=== PATIENT | female | born 1940 | race Asian ===

== ENCOUNTER 2018-02-08 15:42 | Inpatient (IN) | payer OTHER, BC ==
[~2018-02-08] VITALS: Ht 170.2 cm; Wt 66.0 kg
[2018-02-08 17:03] LABS: CALCIUM 8.8 mg/dL (8.5-10.1); CHLORIDE SERUM 96 mmol/L (98-107); CREATININE SERUM 0.8 mg/dL (0.6-1.0); GLUCOSE SERUM 153 mg/dL (74-106); POTASSIUM SERUM 3.8 mmol/L (3.5-5.1); SODIUM SERUM 130 mmol/L (136-145)
[2018-02-08 17:11] LABS: BASOPHIL % 0.2 % (0-2); PLATELET COUNT 290 x10^3mcL (130-400); RED CELL DISTRIBUTION WIDTH 13.9 % (11.5-14.5)
[2018-02-08 17:20] LABS: ALBUMIN 3.8 g/dL (3.4-5.0); ALKALINE PHOSPHATASE 116 U/L (46-116); ALT/SGPT 46 U/L (14-59); AST/SGOT 33 U/L (15-37); FREE T4 1.22 ng/dL (0.76-1.46)
[2018-02-08 17:21] LABS: microscopic required? YES; urine erythrocyte TRACE (NEGATIVE)
[2018-02-08 17:21] LABS: TOTAL PROTEIN, SERUM 8.4 g/dL (6.4-8.2)
[2018-02-08] MEDS ORDERED: NOR5 PO (18:07)
[2018-02-08] MEDS ORDERED: ATORVASTATIN CA40 M1 PO (18:08)
[2018-02-08] MEDS ORDERED: ATENOLOL50 MG PO (18:09)
[2018-02-08] MEDS ORDERED: HYDROCHLOROTH12.5 M2 PO (18:09)
[2018-02-08] MEDS ORDERED: LOSARTAN POTAS100 M1 PO (18:10)
[2018-02-08] MEDS ORDERED: ASPIR LOW81 MG (18:10)
[2018-02-08] MEDS ORDERED: PROAIR HFA8.5 GM (18:11)
[2018-02-08 19:07] LABS: MAGNESIUM 2.1 mg/dL (1.8-2.4); PHOSPHOROUS 2.8 mg/dL (2.5-4.9)
[2018-02-08 19:17] LABS: T3 TOTAL 0.84 ng/mL
[2018-02-08 19:19] LABS: FREE T4 1.21 ng/dL (0.76-1.46); FREE THYROXINE INDEX 3.4 ug/dL (1.4-4.5); T4(THYROXINE) 9.4 ug/dL (4.7-13.3)
[2018-02-08 19:36] VITALS: BP 120/86
[2018-02-08 19:45] VITALS: Ht 170.2 cm; Wt 66.0 kg
[2018-02-09 05:50] VITALS: BP 106/69
[2018-02-09 06:34] LABS: BASOPHIL % 0.4 % (0-2); PLATELET COUNT 245 x10^3mcL (130-400); RED CELL DISTRIBUTION WIDTH 13.8 % (11.5-14.5)
[2018-02-09 07:02] LABS: CALCIUM 8.5 mg/dL (8.5-10.1); CARBON DIOXIDE 27.5 mmol/L (21-32); CHLORIDE SERUM 100 mmol/L (98-107); CREATININE SERUM 0.9 mg/dL (0.6-1.0); GLUCOSE SERUM 109 mg/dL (74-106); PHOSPHOROUS 2.9 mg/dL (2.5-4.9); POTASSIUM SERUM 3.8 mmol/L (3.5-5.1); SODIUM SERUM 137 mmol/L (136-145)
[2018-02-09 07:20] LABS: CHOLESTEROL/HDL RATIO 3.5
[2018-02-09 09:49] VITALS: BP 105/59
[2018-02-09 13:39] VITALS: BP 104/62
[2018-02-09 16:25] VITALS: BP 117/78
[2018-02-09 21:04] VITALS: BP 122/61
[2018-02-10 00:06] VITALS: BP 139/76
[2018-02-10 05:19] VITALS: BP 112/66
[2018-02-10 06:11] LABS: BASOPHIL % 0.4 % (0-2); PLATELET COUNT 266 x10^3mcL (130-400); RED CELL DISTRIBUTION WIDTH 13.9 % (11.5-14.5)
[2018-02-10 06:32] LABS: CARBON DIOXIDE 27.6 mmol/L (21-32); CHLORIDE SERUM 97 mmol/L (98-107); CREATININE SERUM 1.1 mg/dL (0.6-1.0); GLUCOSE SERUM 116 mg/dL (74-106); PHOSPHOROUS 3.7 mg/dL (2.5-4.9); POTASSIUM SERUM 3.6 mmol/L (3.5-5.1); SODIUM SERUM 135 mmol/L (136-145)
[2018-02-10 08:00] VITALS: BP 113/69
[2018-02-10] MEDS ORDERED: CLEOCIN HCL300 MG PO (10:10)
[2018-02-10] MEDS ORDERED: LAC PO (12:03)
[2018-02-10 13:19] VITALS: BP 101/68
[2018-02-10 16:52] VITALS: BP 115/72
[2018-02-10] MEDS ORDERED: LEVAQUIN750 MG PO (17:18)
[2018-02-10 17:35] VITALS: BP 115/72
== END 2018-02-10 18:38 | disposition home or self-care (01) | DRG 177 ==
LOC: ED 15:42 → DU 18:03
PROVIDERS: Emergency Medicine; Family Medicine
DX: J69.0 Pneumonitis due to inhalation of food and vomit (principal); I50.43 Acute on chronic combined systolic (congestive) and diastolic (congestive) heart failure; N17.0 Acute kidney failure with tubular necrosis; J96.01 Acute respiratory failure with hypoxia; E87.1 Hypo-osmolality and hyponatremia; J90 Pleural effusion, not elsewhere classified; I11.0 Hypertensive heart disease with heart failure; I48.2 Chronic atrial fibrillation; G47.33 Obstructive sleep apnea (adult) (pediatric); E78.00 Pure hypercholesterolemia, unspecified; R80.9 Proteinuria, unspecified; K76.0 Fatty (change of) liver, not elsewhere classified; G47.00 Insomnia, unspecified; E78.5 Hyperlipidemia, unspecified; E87.8 Other disorders of electrolyte and fluid balance, not elsewhere classified; Z79.82 Long term (current) use of aspirin; Z68.22 Body mass index [BMI] 22.0-22.9, adult
CPT/HCPCS: 36600; 83880; 84439; 87804; 97535-GP; J1940; J1956; J3490; J7030; J7620; Q0092

== ENCOUNTER 2018-08-21 11:23 | Inpatient (IN) | payer OTHER, BC ==
[~2018-08-21] VITALS: Ht 157.5 cm; Wt 65.3 kg
[~2018-08-21 11:23] MED LIST: ASPIR LOW81 MG; ATENOLOL50 MG PO; ATORVASTATIN CA40 M1 PO; CLEOCIN HCL300 MG PO; HYDROCHLOROTH12.5 M2 PO; LAC PO; LEVAQUIN750 MG PO; LOSARTAN POTAS100 M1 PO; NOR5 PO; PROAIR HFA8.5 GM
[2018-08-21] MEDS ORDERED: LIPI20 PO (12:02)
[2018-08-21] MEDS ORDERED: ELIQUIS5 MG PO (12:03)
[2018-08-21] MEDS ORDERED: AMIODARONE HCL200 MG PO (12:04)
[2018-08-21 12:05] LABS: BASOPHIL % 0.6 % (0-2); PLATELET COUNT 308 x10^3mcL (130-400); RED CELL DISTRIBUTION WIDTH 14.4 % (11.5-14.5)
[2018-08-21 12:12] LABS: CALCIUM 8.4 mg/dL (8.5-10.1); CARBON DIOXIDE 26.3 mmol/L (21-32); CHLORIDE SERUM 94 mmol/L (98-107); CREATININE SERUM 0.9 mg/dL (0.6-1.0); GLUCOSE SERUM 170 mg/dL (74-106); SODIUM SERUM 128 mmol/L (136-145)
[2018-08-21 12:16] LABS: ALBUMIN 3.7 g/dL (3.4-5.0); ALKALINE PHOSPHATASE 106 U/L (46-116); ALT/SGPT 48 U/L (14-59); AST/SGOT 29 U/L (15-37); BILIRUBIN TOTAL 0.94 mg/dL (0.20-1.00); TOTAL PROTEIN, SERUM 8.1 g/dL (6.4-8.2)
[2018-08-21 13:00] LABS: UA SPECIFIC GRAVITY >=1.030 (1.005-1.035); microscopic required? YES; urine erythrocyte NEGATIVE (NEGATIVE)
[2018-08-21 15:20] LABS: CHOLESTEROL/HDL RATIO 2.6; MAGNESIUM 2.2 mg/dL (1.8-2.4); PHOSPHOROUS 3.7 mg/dL (2.5-4.9)
[2018-08-21 15:53] VITALS: BP 154/81
[2018-08-21 17:06] LABS: CALCIUM 8.6 mg/dL (8.5-10.1); CARBON DIOXIDE 26.9 mmol/L (21-32); CHLORIDE SERUM 94 mmol/L (98-107); CREATININE SERUM 0.8 mg/dL (0.6-1.0); GLUCOSE SERUM 153 mg/dL (74-106); POTASSIUM SERUM 4.3 mmol/L (3.5-5.1); SODIUM SERUM 129 mmol/L (136-145)
[2018-08-21 18:00] VITALS: BP 150/80
[2018-08-21 18:26] VITALS: BP 148/70
[2018-08-21 20:56] VITALS: BP 136/70
[2018-08-22 05:04] VITALS: BP 133/70
[2018-08-22 07:09] LABS: BASOPHIL % 0.1 % (0-2); PLATELET COUNT 264 x10^3mcL (130-400); RED CELL DISTRIBUTION WIDTH 14.3 % (11.5-14.5)
[2018-08-22 07:21] LABS: CALCIUM 8.5 mg/dL (8.5-10.1); CARBON DIOXIDE 24.5 mmol/L (21-32); CHLORIDE SERUM 95 mmol/L (98-107); CREATININE SERUM 0.9 mg/dL (0.6-1.0); GLUCOSE SERUM 134 mg/dL (74-106); MAGNESIUM 2.2 mg/dL (1.8-2.4); PHOSPHOROUS 3.8 mg/dL (2.5-4.9); POTASSIUM SERUM 3.8 mmol/L (3.5-5.1); SODIUM SERUM 130 mmol/L (136-145)
[2018-08-22 08:41] VITALS: BP 125/62
[2018-08-22 12:17] VITALS: BP 126/58
[2018-08-22 15:26] VITALS: BP 136/55
[2018-08-22 20:59] VITALS: BP 106/57
[2018-08-23 06:13] VITALS: BP 108/59
[2018-08-23 06:45] LABS: PLATELET COUNT 296 x10^3mcL (130-400)
[2018-08-23 07:12] LABS: BASOPHIL % 0 % (0-2)
[2018-08-23 07:15] LABS: CALCIUM 8.3 mg/dL (8.5-10.1); CARBON DIOXIDE 25.7 mmol/L (21-32); CHLORIDE SERUM 96 mmol/L (98-107); GLUCOSE SERUM 187 mg/dL (74-106); MAGNESIUM 2.4 mg/dL (1.8-2.4); PHOSPHOROUS 3.3 mg/dL (2.5-4.9); POTASSIUM SERUM 3.3 mmol/L (3.5-5.1); SODIUM SERUM 133 mmol/L (136-145)
[2018-08-23 09:40] VITALS: BP 122/67
[2018-08-23 12:38] VITALS: BP 129/81
[2018-08-23 17:36] VITALS: BP 124/69
[2018-08-23 20:47] VITALS: BP 115/68
[2018-08-24] VITALS (7 sets, daily range): BP systolic 99–141; BP diastolic 69–87
[2018-08-24 06:28] LABS: CALCIUM 8.3 mg/dL (8.5-10.1); CARBON DIOXIDE 28.1 mmol/L (21-32); CHLORIDE SERUM 100 mmol/L (98-107); GLUCOSE SERUM 197 mg/dL (74-106); POTASSIUM SERUM 4.2 mmol/L (3.5-5.1); SODIUM SERUM 136 mmol/L (136-145)
[2018-08-24 06:32] LABS: PLATELET COUNT 306 x10^3mcL (130-400)
[2018-08-24 07:13] LABS: BASOPHIL % 0 % (0-2); RED CELL DISTRIBUTION WIDTH 15.3 % (11.5-14.5)
[2018-08-25 03:12] VITALS: BP 129/90
[2018-08-25 05:54] LABS: PLATELET COUNT 290 x10^3mcL (130-400)
[2018-08-25 05:55] LABS: RED CELL DISTRIBUTION WIDTH 14.9 % (11.5-14.5)
[2018-08-25 05:56] LABS: BASOPHIL % 0 % (0-2)
[2018-08-25 06:24] LABS: CALCIUM 8.1 mg/dL (8.5-10.1); CARBON DIOXIDE 25.3 mmol/L (21-32); CHLORIDE SERUM 98 mmol/L (98-107); GLUCOSE SERUM 174 mg/dL (74-106); POTASSIUM SERUM 3.7 mmol/L (3.5-5.1); SODIUM SERUM 133 mmol/L (136-145)
[2018-08-25 07:15] VITALS: BP 126/85
[2018-08-25 11:15] VITALS: BP 114/73
[2018-08-25 15:40] VITALS: BP 159/73
[2018-08-25 20:02] VITALS: BP 159/57
[2018-08-25 23:23] VITALS: BP 126/72
[2018-08-26 03:13] VITALS: BP 125/88
[2018-08-26 05:24] LABS: PLATELET COUNT 318 x10^3mcL (130-400)
[2018-08-26 05:34] LABS: CALCIUM 7.8 mg/dL (8.5-10.1); CARBON DIOXIDE 26.7 mmol/L (21-32); CHLORIDE SERUM 98 mmol/L (98-107); CREATININE SERUM 0.9 mg/dL (0.6-1.0); GLUCOSE SERUM 197 mg/dL (74-106); POTASSIUM SERUM 3.7 mmol/L (3.5-5.1); RED CELL DISTRIBUTION WIDTH 15.1 % (11.5-14.5); SODIUM SERUM 132 mmol/L (136-145)
[2018-08-26 05:35] LABS: BASOPHIL % 0 % (0-2)
[2018-08-26 07:30] VITALS: BP 134/67
[2018-08-26 07:56] VITALS: Ht 157.5 cm; Wt 65.3 kg
[2018-08-26 11:30] VITALS: BP 133/86
[2018-08-26 16:05] VITALS: BP 118/77
[2018-08-26 20:44] VITALS: BP 127/78
[2018-08-27 05:18] VITALS: BP 139/82
[2018-08-27 06:48] LABS: PLATELET COUNT 294 x10^3mcL (130-400)
[2018-08-27 06:55] LABS: BASOPHIL % 0 % (0-2); CALCIUM 8.4 mg/dL (8.5-10.1); CARBON DIOXIDE 31.2 mmol/L (21-32); CHLORIDE SERUM 101 mmol/L (98-107); GLUCOSE SERUM 182 mg/dL (74-106); POTASSIUM SERUM 3.6 mmol/L (3.5-5.1); RED CELL DISTRIBUTION WIDTH 15.2 % (11.5-14.5); SODIUM SERUM 139 mmol/L (136-145)
[2018-08-27 10:56] VITALS: BP 124/78
[2018-08-27 14:00] VITALS: BP 113/69
[2018-08-27 19:24] VITALS: BP 133/75
[2018-08-27 21:07] VITALS: BP 123/75
[2018-08-28 05:12] VITALS: BP 120/62
[2018-08-28 06:17] LABS: PLATELET COUNT 267 x10^3mcL (130-400)
[2018-08-28 06:38] LABS: CALCIUM 7.7 mg/dL (8.5-10.1); CARBON DIOXIDE 32.9 mmol/L (21-32); CHLORIDE SERUM 99 mmol/L (98-107); CREATININE SERUM 0.9 mg/dL (0.6-1.0); GLUCOSE SERUM 124 mg/dL (74-106); POTASSIUM SERUM 3.5 mmol/L (3.5-5.1); SODIUM SERUM 131 mmol/L (136-145)
[2018-08-28 07:29] LABS: BASOPHIL % 0 % (0-2); RED CELL DISTRIBUTION WIDTH 14.8 % (11.5-14.5)
[2018-08-28 10:38] VITALS: BP 121/75
[2018-08-28] MEDS ORDERED: LOSARTAN POTASS50 M1 PO (13:00)
[2018-08-28] MEDS ORDERED: PREDNISONE20 MG PO (13:00)
[2018-08-28] MEDS ORDERED: METOPROLOL TART25 M1 PO (13:00)
[2018-08-28] MEDS ORDERED: DIGOXIN0.125 M1 PO (13:00)
[2018-08-28] MEDS ORDERED: METFORMIN HCL500 MG PO (13:00)
[2018-08-28 14:31] VITALS: BP 121/75
[2018-08-28 14:33] VITALS: BP 133/72
== END 2018-08-28 15:30 | disposition home or self-care (01) | DRG 193 ==
LOC: ED 11:23 → MU 14:23 → IC 14:23 → DU 14:23 → IC 08-24 13:37 → DU 08-26 18:28
PROVIDERS: Emergency Medicine; Family Medicine; ADMIT Internal Medicine
DX: J18.9 Pneumonia, unspecified organism (principal); J96.01 Acute respiratory failure with hypoxia; N17.0 Acute kidney failure with tubular necrosis; I50.33 Acute on chronic diastolic (congestive) heart failure; D68.59 Other primary thrombophilia; E87.1 Hypo-osmolality and hyponatremia; J81.1 Chronic pulmonary edema; I48.91 Unspecified atrial fibrillation; I10 Essential (primary) hypertension; E11.65 Type 2 diabetes mellitus with hyperglycemia; E78.5 Hyperlipidemia, unspecified; E87.70 Fluid overload, unspecified; G47.33 Obstructive sleep apnea (adult) (pediatric); Z79.01 Long term (current) use of anticoagulants
CPT/HCPCS: 36600; 82962; 83880; C9113; J0282; J1160; J1940; J1956; J2920; J2930; J3490; J7030; J7040; J7613; J7620; J7626; J7644; Q0092

== ENCOUNTER 2018-12-25 08:46 | Inpatient (IN) | payer OTHER, BC ==
[~2018-12-25] VITALS: Ht 165.1 cm; Wt 62.1 kg
[~2018-12-25 08:46] MED LIST changes: +AMIODARONE HCL200 MG PO; +DIGOXIN0.125 M1 PO; +ELIQUIS5 MG PO; +LIPI20 PO; +LOSARTAN POTASS50 M1 PO; +METFORMIN HCL500 MG PO; +METOPROLOL TART25 M1 PO; +PREDNISONE20 MG PO
[2018-12-25 08:50] VITALS: Ht 165.1 cm; Wt 62.1 kg
--- NOTE | 2018-12-25 08:55 | NUR ---
PT BIBA FOR SOB THAT OCCURED AT PATIENT'S HOUSE EARLIER TODAY. PER MEDIC, THERE WAS A HOME HEALTH NURSE PRESENT AND NOTICED PATIENT WAS SOB. PATIENT WAS PLACED ON CPAP BY MEDICS. RT ON SCENE TO ESTABLISH BIPAP. WHEEZING AUSCULTATED BILATERALLY. PATIENT AAOX4, BREATHING IS LABORED, BILATERAL CHEST RISE. DR. YU PERFORMED MSE.
--- NOTE | 2018-12-25 09:00 | NUR ---
PLACED ON BIPAP 12/6 RR12 FIO2:50%
[2018-12-25 09:38] LABS: ALKALINE PHOSPHATASE 117 U/L (46-116); ALT/SGPT 95 U/L (14-59); AST/SGOT 50 U/L (15-37); BILIRUBIN TOTAL 1.91 mg/dL (0.20-1.00); C REACTIVE PROTEIN 1.2 mg/dL (<=0.9); CALCIUM 9.2 mg/dL (8.5-10.1); CARBON DIOXIDE 26.1 mmol/L (21-32); CHLORIDE SERUM 89 mmol/L (98-107); CK-MB 2.8 ng/mL (0-3.6); CREATININE SERUM 0.9 mg/dL (0.6-1.0); FREE T4 1.71 ng/dL (0.76-1.46); FREE THYROXINE INDEX 4.2 ug/dL (1.4-4.5); GLUCOSE SERUM 213 mg/dL (74-106); POTASSIUM SERUM 4.4 mmol/L (3.5-5.1); T4(THYROXINE) 11.1 ug/dL (4.7-13.3)
[2018-12-25 09:40] LABS: T3 TOTAL 0.94 ng/mL
[2018-12-25 09:41] LABS: SODIUM SERUM 123 mmol/L (136-145)
[2018-12-25 09:45] LABS: BASOPHIL % 0.2 % (0-2); PLATELET COUNT 237 x10^3mcL (130-400)
[2018-12-25] MEDS ORDERED: CARDIZEM CD360 MG PO (09:48)
[2018-12-25] MEDS ORDERED: ELIQUIS2.5 MG PO (09:48)
[2018-12-25] MEDS ORDERED: GLIPIZIDE ER5 M1 (09:49)
[2018-12-25] MEDS ORDERED: ALDACTONE25 MG (09:49)
[2018-12-25] MEDS ORDERED: LASIX40 MG PO (09:49)
[2018-12-25 09:50] LABS: RED CELL DISTRIBUTION WIDTH 15.8 % (11.5-14.5)
--- NOTE | 2018-12-25 10:10 | NUR ---
PT RESTING AT BEDSIDE IN NAD. RESIDENT AT BEDSIDE
[2018-12-25 10:35] LABS: UA SPECIFIC GRAVITY >=1.030 (1.005-1.035); microscopic required? YES; urine erythrocyte TRACE (NEGATIVE)
--- NOTE | 2018-12-25 11:23 | NUR ---
ATTEMPTED TO CALL REPORT. PER PL SQL PROGRAMMER, CALL BACK IN 5 MINUTES
[2018-12-25 11:30] LABS: ERYTHROCYTE SED RATE 13 mm/hr (0-30)
--- NOTE | 2018-12-25 11:35 | NUR ---
REPORT OFF TO ANDI WHITE
[2018-12-25 11:47] LABS: MAGNESIUM 1.9 mg/dL (1.8-2.4); PHOSPHOROUS 3.6 mg/dL (2.5-4.9)
--- NOTE | 2018-12-25 11:49 | NUR ---
RECEIVED PATIENT FROM ER AT THIS TIME. PATIENT TRANSFERRED FROM ER [facility] TO [facility] BED. PATIENT ON BIPAP AT THIS TIME. LABORED BREATHING. AUDIBLE WHEEZES NOTED. PATIENT A/O X4 AND ABLE TO MAKE NEEDS KNOWN. INCREASED WORK OF BREATHING. PATIENT DENIES CHEST PAIN AT THIS TIME. TELE [address] READING AFIB. PULSES PALPABLE WITH NO EDEMA NOTED. BOWEL SOUNDS ACTIVE X4 AND DENIES ABD PAIN AT THIS TIME. VOIDS FREELY WITH NO C/O BURNING/DISCOMFORT. IV TO LEFT HAND PATENT AND INTACT. ALL QUESTIONS AND CONCERNS ADDRESSED. PERSONAL BELONGINGS LIST DONE. ALL NEEDS ATTENDED TO. WILL CONTINUE TO MONITOR
--- NOTE | 2018-12-25 12:07 | NUR ---
PATIENT BLOOD SUGAR 187 AT THIS TIME. 3 UNITS OF REGULAR INSULIN REQUIRED (SEE EMAR). ALL NEEDS ATTENDED TO. WILL CONTINUE TO MONITOR
[2018-12-25 12:43] VITALS: BP 137/99
--- NOTE | 2018-12-25 12:43 | NUR ---
TAKEN OFF BIPAP TO EAT. PLACED ON 6L OXYMIZER SPO2: 98%
[2018-12-25 12:46] VITALS: BP 137/99
--- NOTE | 2018-12-25 13:00 | NUR ---
SPOKE TO RESIDENT WATCHER LOOKOUT TOWER DR MEDINA REGARING PATIENT HR INCREASING TO 150'S ON TELE. PATIENT DENIES CHEST PAIN. PER DR MEDINA SHE WILL RELAY MESSAGE TO DR REYES. WILL PROCEED ORDERED. WILL CONTINUE TO MONITOR
--- NOTE | 2018-12-25 15:00 | NUR ---
PLACED BACK ON BIPAP. 07/31 14 50%
--- NOTE | 2018-12-25 16:16 | NUR ---
FORTUNE CATHETER INSERTED AT THIS TIME WITH STUDENT AND STUDENT PROFESSOR. PATIENT TOLERATED WELL. SECURED IN PLACE. FORTUNE DRAINING TO GRAVITY YELLOW URINE. WILL CONTINUE TO MONITOR
--- NOTE | 2018-12-25 16:23 | NUR ---
PATIENT GIVEN DIGOXIN IVP AT THIS TIME. APICAL PULSE 84. TELE MONITOR AWARE AND TO PRINT STRIPS BEFORE AND AFTER ADMINISTRATION. NO ADVERSE EFFECTS NOTED. ALL NEEDS ATTENDED TO. WILL CONTINUE TO MONITOR
[2018-12-25 17:10] VITALS: BP 125/74
--- NOTE | 2018-12-25 18:08 | NUR ---
DR MEDINA AND DR MUNOZ AWARE OF PATIENT HEART RATE RANGING IN THE 40-60. DR'S AWARE DR CONNELL ORDERED DIGOXIN FOR PATIENT. DR'Humberto AWARE PATIENT IS ASYMPTOMATIC AND DENIES CHEST PAIN AT THIS TIME. PER DR'S, MONITOR PATIENT HEART RATE. NO CHANGE IN ORDERS. WILL CONTINUE TO MONITOR
--- NOTE | 2018-12-25 18:39 | NUR ---
PATIENT RESTING COMFORTABLY IN BED AT THIS TIME. NO APPARENT DISTRESS OR DISCOMFORT NOTED. IV TO LEFT HAND PATENT AND INTACT. FORTUNE CATHETER IN PLACE DRAINING TO GRAVITY YELLOW URINE. CONTINUOUS BIPAP FIO2 40. ALL QUESTIONS AND CONCERNS ADDRESSED. SAFETY PRECAUTIONS MAINTAINED. FAMILY AT BEDSIDE. ALL NEEDS ATTENDED TO. WILL ENDORSE ALL CARE TO NANOFABRICATION SPECIALIST NURSE
--- NOTE | 2018-12-25 19:30 | NUR ---
RECIEVED PATIENT AT START OF SHIFT ALERT AND ORIENTED. PATIENT IS ON BIPAP 40% FI02, AND STATES SHE FEELS COMFORTABLE, NO SOB. LUNGS SOUND CLEAR THROUGHOUT. DENIES PAIN. PATIENT IS ON TELE NUMBER 18, [place] AT 44. FORTUNE CATHETER IN PLACE DRAINING CLEAR YELLOW URINE. IV TO LH IS INFUSING WITHOUT ERYTHEMA OR INFILTRATION. BED LOCKED AND IN LOWEST POSIITON. CALL LIGHT AND BEDSIDE TABLE WITHIN REACH. WILL CONTINUE TO MONITOR.
[2018-12-25 21:17] VITALS: BP 101/53
--- NOTE | 2018-12-25 23:15 | NUR ---
PATIENT WAS SWITCHED FROM BIPAP TO OXYMIZER 45% FI02 SO SHE COULD EAT A SANDWHICH. PATIENT IS NO LONGER NPO BECAUSE ULTRASOUND WAS COMPLETED. PATIENT SATTING 93% ON OXYMIZER. APPEARS COMFORTABLE. WILL CONTINUE TO MONITOR.
--- NOTE | 2018-12-26 00:25 | NUR ---
PATIENT PUT BACK ON BIPAP DUE TO O2 SAT OF 85 ON OXYMIZER 10L. NEW O2 SAT IS 96% ON BIPAP. WILL CONTINUE TO MONITOR.
[2018-12-26 06:10] LABS: PLATELET COUNT 170 x10^3mcL (130-400)
--- NOTE | 2018-12-26 06:24 | NUR ---
PATIENT IS AWAKE, FORTUNE CARE PROVIDED. FORTUNE DRAINED 620 MLS OF BLOODY URINE. WILL NOTOFOnofre MD OF BLOODY URINE. IV INFUSING WITHOUT IRRITATION. BIPAP STILL IN PLACE. PATIENT STATES SHE FEELS COMFORTABLE. CALL LIGHT WITHIN REACH. WILL ENDORSE CARE TO MORNING NURSE.
[2018-12-26 06:30] LABS: CALCIUM 7.9 mg/dL (8.5-10.1); CARBON DIOXIDE 25.1 mmol/L (21-32); CHLORIDE SERUM 97 mmol/L (98-107); CREATININE SERUM 1.1 mg/dL (0.6-1.0); GLUCOSE SERUM 194 mg/dL (74-106); MAGNESIUM 2.1 mg/dL (1.8-2.4); PHOSPHOROUS 2.4 mg/dL (2.5-4.9); POTASSIUM SERUM 4.2 mmol/L (3.5-5.1); SODIUM SERUM 130 mmol/L (136-145)
[2018-12-26 06:37] VITALS: BP 127/65
[2018-12-26 06:56] LABS: BASOPHIL % 0 % (0-2)
--- NOTE | 2018-12-26 07:57 | NUR ---
RECEIVED AWAKE, ALERT AND ORIENTED. ON BIPAP , NO ACUTE RESP. DISTRESS NOTED. NO C/O PAIN OR DISCOMFORT. VS WNL. IVF INFUSING WELL AND SITE CLEAR. CALLLIGHT WITHIN REACH. WILL CONTINUE WITH PLAN OF CARE.
[2018-12-26 08:24] VITALS: BP 135/80
[2018-12-26 12:17] VITALS: BP 125/66
--- NOTE | 2018-12-26 15:25 | NUR ---
RESTING IN BED, NO ACUTE DISTRESS. DENIES ANY DISCOMFORT.
[2018-12-26 17:02] VITALS: BP 124/58
--- NOTE | 2018-12-26 18:45 | NUR ---
REMAINS IN NO DISTRESS. AWAKE AND ALERT. NO CHANGES IN VS. NO C/O PAIN OR DISCOMFORT AT THIS TIME. IVF INFUSING WELL AND SITE CLEAR. FAMILY AT BEDSIDE. WILL BE ENDORSED TO INCOMING SHIFT.
--- NOTE | 2018-12-26 19:15 | NUR ---
CARE ASSUMED FROM OUTGOING RN. PT RESTING COMFORTABLY IN BED. NO ACUTE DISTRESS NOTED. ON OXYMIZER, TOLERATING WELL. NO SOB NOTED. ON TELE #18 READING AFIB 65. IV PATENT AND INTACT RUNNING FLUIDS PER EMAR. FORTUNE PATENT WITH DARK YELLOW OUTPUT WITH MINUTE BLOOD NOTED. BED IN LOWEST POSITION. SIDE RAILS UP X2. CALL LIGHT WITHIN REACH WILL CONTINUE TO MONITOR.
[2018-12-26 20:28] VITALS: BP 154/58
--- NOTE | 2018-12-27 00:20 | NUR ---
PT RESTING COMFORTABLY IN BED. NO ACUTE DISTRESS NOTED. EVEN AND UNLABORED BREATHING ON BIPAP. ON TELE# 18 READING AFIB 72. IV INTACT AND PATENT RUNNING FLUIDS PER EMAR. SOLU-MEDROL GIVEN IVP. PT TOLERATED WELL. BED IN LOWEST POSITION. SIDE RAILS UP X2. CALL LIGHT WITHIN REACH. WILL CONTINUE TO MONITOR.
[2018-12-27 05:28] VITALS: BP 135/72
[2018-12-27 06:30] LABS: PLATELET COUNT 181 x10^3mcL (130-400)
--- NOTE | 2018-12-27 06:37 | NUR ---
PT SLEPT COMFORTABLY AND PERIODICALLY THROUGHOUT THE NIGHT. NO ACUTE DISTRESS NOTED. PT TOLERATING BIPAP WELL. ON TELE #18 READING AFIB 90. ALL NEEDS TENDED TO AND MET. PT TOLERATED PO MEDS, IV SOLUMEDROL, AND ZOSYN IVPB WELL. FASTING BLOOD SUGAR CHECKED, 236 COVERED WITH 6 UNITS OF INSULIN, 148 WITH NO INSULIN COVERAGE NEEDED. IV PATENT AND INTACT RUNNING FLUIDS PER EMAR. FORTUNE PATENT WITH 700ML OUTPUT OF YELLOW, BLOODY URINE. BED IN LOWEST POSITION. SIDE RAILS UP X2. CALL LIGHT WITHIN REACH. WILL ENDORSE TO ONCOMING SHIFT.
[2018-12-27 07:06] LABS: RED CELL DISTRIBUTION WIDTH 16.4 % (11.5-14.5)
[2018-12-27 07:07] LABS: BASOPHIL % 0 % (0-2); CALCIUM 7.8 mg/dL (8.5-10.1); CARBON DIOXIDE 26.4 mmol/L (21-32); CHLORIDE SERUM 101 mmol/L (98-107); GLUCOSE SERUM 167 mg/dL (74-106); MAGNESIUM 2.4 mg/dL (1.8-2.4); PHOSPHOROUS 2.7 mg/dL (2.5-4.9); POTASSIUM SERUM 3.7 mmol/L (3.5-5.1); SODIUM SERUM 136 mmol/L (136-145)
[2018-12-27 07:23] VITALS: BP 141/73
--- NOTE | 2018-12-27 07:32 | NUR ---
RECEIVED THIS AM ON BIPAP AND TOLERATING WELL. IN NO ACUTE RESP. DISTRESS. PT AWAKE AND ALERT. VS WNL. AFIB ON THE MONITOR. NO C/O PAIN OR DISCOMFORT AT THIS TIME. FORTUNE VATH IN PLACE DRAINING DARK NILDA URINE TO GRAVITY. IVF INFUSING WELL AND SITE CLEAR. CALL LIGHT WITHIN REACH. WILL CONTINUE WITH PLAN OF CARE.
[2018-12-27 12:46] VITALS: BP 127/58
--- NOTE | 2018-12-27 15:21 | NUR ---
RESTING IN NO DISTRESS, DENIES DISCOMFORT.
[2018-12-27 16:48] VITALS: BP 146/71
--- NOTE | 2018-12-27 18:56 | NUR ---
REMAINS IN NO ACUTE DISTRESS, ON OXYMIZER 15L SATS 96%. MILD SOB WITH ACTIVITIES NOTED. NO C/O PAIN AT THIS TIME. INF INFUSING WELL AND SITE CLEAR. FAMILY AT BEDSIDE. WILL BE ENDORSED TO INCOMING SHIFT.
--- NOTE | 2018-12-27 19:10 | NUR ---
CARE ASSUMED FROM OUTGOING RN. PT RESTING COMFORTABLY IN BED. NO ACUTE DISTRESS NOTED. EVEN AND UNLABORED RESPIRATIONS NOTED ON OXYMIZER 5L. ON TELE #18 READING AFIB 79. IV INTACT AND PATENT RUNNING FLUIDS PER EMAR. FORTUNE INTACT AND PATENT WITH YELLOW OUTPUT. DENIES ANY PAIN AT THIS TIME. BED IN LOWEST POSITION. SIDE RAILS UP X2. CALL LIGHT WITHIN REACH. WILL CONTINUE TO MONITOR.
[2018-12-27 19:50] VITALS: BP 133/67
--- NOTE | 2018-12-28 00:14 | NUR ---
PT RESTING COMFORTABLY IN BED. NO ACUTE DISTRESS NOTED. TOLERATING BIPAP WELL. DENIES ANY PAIN AT THIS TIME. IV PATENT AND INTACT RUNNING FLUIDS PER EMAR. IVP SOLU-MEDROL GIVEN. ON TELE #18 READING AFIB 79. FORTUNE INTACT AND PATENT WITH DARK YELLOW OUTPUT. BED IN LOWEST POSITION. SIDE RAILS UP X2. CALL LIGHT WITHIN REACH. WILL CONTINUE TO MONITOR.
[2018-12-28 05:34] VITALS: BP 147/63
[2018-12-28 06:07] LABS: PLATELET COUNT 182 x10^3mcL (130-400)
[2018-12-28 07:18] LABS: CALCIUM 7.5 mg/dL (8.5-10.1); CARBON DIOXIDE 26.8 mmol/L (21-32); CHLORIDE SERUM 103 mmol/L (98-107); GLUCOSE SERUM 158 mg/dL (74-106); MAGNESIUM 2.3 mg/dL (1.8-2.4); POTASSIUM SERUM 3.2 mmol/L (3.5-5.1); SODIUM SERUM 140 mmol/L (136-145)
--- NOTE | 2018-12-28 07:31 | NUR ---
RECEIVED IN NO ACUTE DISTRESS. ON BIPAP AND TOLERATING WELL. ALERT AND ORIENTED. DENIES PAIN OR DISCOMFORT AT THIS TIME. VS WNL. IVF INFUSING WELL. CALL LIGHT WITHIN REACH. WILL CONTINUE WITH PLAN OF CARE.
[2018-12-28 07:35] LABS: BASOPHIL % 0 % (0-2); RED CELL DISTRIBUTION WIDTH 16.4 % (11.5-14.5)
[2018-12-28 09:09] VITALS: BP 144/73
--- NOTE | 2018-12-28 10:58 | NUR ---
PT ON OXYMIZER 3L, RANDA. FAIRLY.MILD SOB NOTED WITH ACTIVITIES BUT NO ACUTE DISTRESS. WILL CONTINUE TO MONITOR.
[2018-12-28 13:00] VITALS: BP 143/78
--- NOTE | 2018-12-28 15:18 | NUR ---
FAMILY AT BEDSIDE. NO ACUTE DOSTRESS NOTED. NO C/O PAIN OR DISCOMFORT. VSS
[2018-12-28 17:15] VITALS: BP 145/76
--- NOTE | 2018-12-28 18:12 | NUR ---
PT REMAINS IN NO DISTRESS, AWAKE AND ALERT. NO C/O PAIN OR DISCOMFORT AT THIS TIME. IVF INFUSING WELL AND SITE CLEAR. CALL LIGHT WITHIN REACH.
--- NOTE | 2018-12-28 19:57 | NUR ---
PT CURRENTLY RESTING IN BED, NO ACUTE DISTRESS. A/O X4. BLURRY VISION BILATERALLY. TELE #18 SHOWING AFIB, DENIES CHEST PAIN. PULSES PALPABLE IN ALL EXTREMITIES, NO EDEMA NOTED. LUNG SOUNDS WHEEZING BILATERALLY, DENIES SOB. O2 VIA OXYMIZER AT 3L. BOWEL SOUNDS ACTIVE, LAST BM 12/28/18. FORTUNE CATHETER IN PLACE, YELLOW URINE NOTED. GENERALIZED WEAKNESS. SKIN INTACT. IV PATENT AND INTACT. BED IN LOWEST POSITION, SIDE RAILS UP X2, CALL LIGHT WITHIN REACH. WILL CONTINUE TO MONITOR.
[2018-12-28 20:12] VITALS: BP 138/66
--- NOTE | 2018-12-29 03:45 | NUR ---
PT CURRENTLY RESTING IN BED WITH BIPAP ON, NO ACUTE DISTRESS. WILL CONTINUE TO MONITOR.
[2018-12-29 04:10] VITALS: BP 144/82
--- NOTE | 2018-12-29 06:15 | NUR ---
PT SLEPT PERIODICALLY THROUGHOUT NIGHT, NO ACUTE DISTRESS. ALL NEEDS MET AND ATTENDED TO. NO SIGNIFICANT CHANGES. IV PATENT AND INTACT. BED IN LOWEST POSITION, SIDE RAILS UP X2, CALL LIGHT WITHIN REACH. WILL ENDORSE CARE TO ONCOMING NURSE.
[2018-12-29 06:29] LABS: PLATELET COUNT 184 x10^3mcL (130-400)
[2018-12-29 06:39] LABS: CALCIUM 7.4 mg/dL (8.5-10.1); CARBON DIOXIDE 29.8 mmol/L (21-32); CHLORIDE SERUM 102 mmol/L (98-107); CREATININE SERUM 0.9 mg/dL (0.6-1.0); GLUCOSE SERUM 175 mg/dL (74-106); MAGNESIUM 2.4 mg/dL (1.8-2.4); PHOSPHOROUS 2.9 mg/dL (2.5-4.9); SODIUM SERUM 140 mmol/L (136-145)
[2018-12-29 06:59] LABS: BASOPHIL % 0 % (0-2); RED CELL DISTRIBUTION WIDTH 16.6 % (11.5-14.5)
--- NOTE | 2018-12-29 08:00 | NUR ---
AT 0710 - RECEIVED PATIENT FROM NIGHT NURSE. PATIENT SLEEPING. ON BIPAP AT PRESENT. MONITOR SHOWING A-FIB; RATE 90'S. AT 0740 - AWAKE, ALERT AND ORIENTED. TAKEN OFF BIPAP AND PLACED ON OXYMIZER AT 3L/MIN. SAT UP IN BED FOR BREAKFAST.
[2018-12-29 08:51] VITALS: BP 154/97
--- NOTE | 2018-12-29 09:34 | NUR ---
AT 0820 - K+ 3.[address] VILLARREAL. WILL HOLD LASIX UNTIL K REPLEATED. AT 0826 - RECEIVED ORDER FOR K-RIDER. AT 0915 - PATIENT IS NOW OFF OXYMIZER. HAS BEEN PLACED ON NC AT 2L BY RT.
--- NOTE | 2018-12-29 11:14 | NUR ---
AT 1030 - COMMENCED K-RIDER PER EMAR. ALSO GIVEN PO LASIX SCHEDULED. AT 1100 - PATIENT SITTIBNG IN CHAIR. BLADDER TRAINING COMMENCED THERE IS ORDER TO REMOVE FORTUNE CATHETER.
[2018-12-29 12:07] VITALS: BP 137/69
[2018-12-29 16:46] VITALS: BP 126/52
--- NOTE | 2018-12-29 18:41 | NUR ---
AT 1300 - AFTER EATING LUNCH, PATIENT RETURNED TO BED. BLADDER TRAINING IN PROGRESS. K-RIDER IN PROGRESS. AT 1630 - PATIENT TOLERATING BLADDER TRAINING WITH ALTERNATING 2 HOURS OF CLAMPED CATHETER AND 30 MINUTES RELEASE. AT 1800 - VSS. AFEBRILE. RESPIRATIONS REGULAR. REMAINS ON O2 VIA NC AT 2L. ENCOURAGED USE OF INSENTIVE SPIROMETER. EATING WELL. NO C/O PAIN. MONITOR SHOWING A-FIB; RATE 70. WILL ENDORSE CARE TO NIGHT NURSE.
--- NOTE | 2018-12-29 19:20 | NUR ---
REPORT RECIEVED FROM DAY SHIFT RN. PATIENT WAS SEEN AND IS RESTING COMFORTABLY IN BED. NO DISTRESS NOTED. NO C/O PAIN. BREATHING EVEN ON 2L NC. NO SOB OR RESP DISTRESS NOTED. IV TO THE LEFT HAND INFSUING NS WELL. PATENT AND INTACT. NO REDNESS OR SWELLING NOTED. FORTUNE CATH IN PLACE. DRAINGING YELLOW URINE BY GRAVITY. ABLE TO MAKE NEEDS KNOWN. COMFORT AND SAFETY MEASURES MAINTAINED. BED IN THE LOWEST POSITION. SIDE RAILS UP X2. CALL LIGHT IS WITHIN REACH. INSTRUCTED TO CALL FOR ASSISTANCE. WILL CONTINUE TO MONITOR.
[2018-12-29 20:51] VITALS: BP 154/80
--- NOTE | 2018-12-29 22:10 | NUR ---
AT 1999 FORTUNE WAS CLAMPPED FOR BLADDER TRAINING. UNCLAMMPED, 200ML OUT. PATIENT TOLERATED WELL. DENIED BLADDER PAIN. CALL LIGHT IS WITHIN REACH. PATIENT ON BIPAP FOR SLEEP. WILL CONTINUE TO MONITOR.
--- NOTE | 2018-12-30 00:17 | NUR ---
PATIENT IS RESTING WITH EYES CLOSED IN BED COMFORTABLY. ON BIPAP. IV TO THE LEFT HAND INFUSING WELL. PATENT AND INTACT. NO REDNESS OR SWELLING NOTED. NO DISTRESS NOTED. NO S/S OF PAIN. COMFORT AND SAFETY MEASURES MAINTAINED. CALL LIGHT IS WITHTIN REACH. WILL CONTINUE TO MONITOR.
[2018-12-30 05:36] VITALS: BP 154/88
--- NOTE | 2018-12-30 06:37 | NUR ---
PATIENT SLEPT IN LONG INTERVALS THROUGHOUT THE NIGHT. ON BIPAP THROGHOUT THE NIGHT. NO C/O PAIN. DENIES CP. FEOLEY CATH IN PLACE. CLAMMPED AT THIS TIME FOR BLADDER TRAINING (CLAMMPED AT 0430). IV TO THE LEFT HAND INFUSING WELL. FORTUNE CATH CARE PROVIDED. NO SIGNIFICANT CHANGES NOTED. BREATHING EVEN. NO SOB OR RESP DISTRESS NOTED. COMFORT AND SAFETY MEASURES MAINTAINED. ALL NEEDS AND CONCERNS ADDRESSED. CALL LIGHT IS WITHIN REACH. WILL ENDORSE CARE TO DAY SHIFT RN.
[2018-12-30 06:57] LABS: CALCIUM 6.9 mg/dL (8.5-10.1); CARBON DIOXIDE 28.2 mmol/L (21-32); CHLORIDE SERUM 103 mmol/L (98-107); CREATININE SERUM 0.8 mg/dL (0.6-1.0); GLUCOSE SERUM 182 mg/dL (74-106); MAGNESIUM 2.3 mg/dL (1.8-2.4); PHOSPHOROUS 2.6 mg/dL (2.5-4.9); SODIUM SERUM 141 mmol/L (136-145)
[2018-12-30 07:01] LABS: POTASSIUM SERUM 2.5 mmol/L (3.5-5.1)
[2018-12-30 07:08] LABS: BASOPHIL % 0.1 % (0-2); PLATELET COUNT 180 x10^3mcL (130-400)
--- NOTE | 2018-12-30 07:09 | NUR ---
K 2.5. PAGE GATED DR. VILLARREAL
--- NOTE | 2018-12-30 07:30 | NUR ---
RECEIVED PT IN NO ACUTE DISTRESS. AAOX4. BREATHING EVEN AND UNLABORED ON BIPAP. GEN WEAKNESS. FORTUNE CLAMPED AT THIS TIME FOR BLADDER TRAINING. IVF INFUSING, NO REDNESS OR SWELLING TO IV SITE. HOB SLIGHTLY ELEVATED. BED IN LOW POSITION, CALL LIGHT WITHIN REACH. WILL CONTINUE TO MONITOR.
--- NOTE | 2018-12-30 07:47 | NUR ---
PT NOW ON ROOM AIR. BREATHING EVEN AND UNLABORED. WILL CONTINUE TO MONITOR.
--- NOTE | 2018-12-30 08:42 | NUR ---
FORTUNE CATHETER UNCLAMPED AT THIS TIME.
[2018-12-30 09:12] VITALS: BP 154/87
--- NOTE | 2018-12-30 11:23 | NUR ---
PT RESTING IN BED. NO ACUTE DISTRESS. BREATHING EVEN AND UNLABORED ON RA. IVF INFUSING, NO REDNESS OR SWELLING NOTED. HOB SLIGHLTY ELEVATED. CALL LIGHT WITHIN REACH. WILL CONTINUE TO MONITOR.
[2018-12-30 13:23] VITALS: BP 122/66
--- NOTE | 2018-12-30 14:07 | NUR ---
PT C/O NUMBNESS TO FACE, STATED "AFTER I GOT INJECTION." NO FACIAL DROOP NOTED, HAND DIRECTOR EQUAL. ADAIR CHAVIRA AWARE, NO NEW ORDERS. WILL CONTINUE TO MONITOR.
[2018-12-30 16:55] VITALS: BP 134/68
--- NOTE | 2018-12-30 17:02 | NUR ---
FORTUNE CATHETER DC'D ORDERED. 725 ML YELLOW URINE OUTPUT. PT TOLERATED WELL. WILL CONTINUE TO MONITOR.
--- NOTE | 2018-12-30 18:50 | NUR ---
PT IN NO ACUTE DISTRESS. AAOX4. RESP EVEN AND UNLABORED ON RA. NO C/O PAIN. IVF INFUSING, NO REDNESS OR SWELLING TO IV SITE. FAMILY AT BEDSIDE. HOB ELEVATED. FALL PRECAUTIONS. BED IN LOW POSITION, CALL LIGHT WITHIN REACH. WILL ENDORSE TO ONCOMING SHIFT.
--- NOTE | 2018-12-30 20:00 | NUR ---
RECEIVED PT IN BED, RESTING QUIETLY. A/O X4, ABLE TO VERBALIZE NEEDS. DENIES HEADACHE/DIZZINESS. RESP. EVEN AND UNLABORED. ON ROOM AIR AT THIS TIME, TO.. WELL, DENIES SOB. NO ACUTE DISTRESS NOTED. AFIB ON THE MONITOR, DENIES CP OR ANY DISCOMFORT AT THIS TIME. IVF, NS AT 100ML/HR, INTACT AND INFUSING VIA LT HAND, SITE CLEAR. VOIDING FREELY. ASSISTED WITH HS CARE. CALL LIGHT WITHIN REACH. WILL CONTINUE TO MONITOR.
[2018-12-30 20:44] VITALS: BP 144/66
--- NOTE | 2018-12-31 01:10 | NUR ---
EYES CLOSED, APPEARS ASLEEP, EASILY AROUSABLE. ON BIPAP MACHINE FOR RESP. SUPPORT. RANDA. WELL. NO ACUTE DISTRESS NOTED. WILL CONTINUE TO MONITOR.
[2018-12-31 05:19] VITALS: BP 147/84
--- NOTE | 2018-12-31 06:18 | NUR ---
SLEPT WELL. NO COMPLAINTS NOTED AT THIS TIME. RESP. EVEN AND UNLABORED. ON ROOM AIR AT THIS TIME, NO ACUTE DISTRESS NOTED. AFEBRILE AND VITAL SIGNS STABLE. DUE MEDS GIVEN ORDERED, RANDA. WELL. IVF INTACT AND INFUSING WELL, SITE CLEAR. VOIDING FREELY. NO BM NOTED. KEPT COMFORTABLE AND ALL NEEDS ATTENDED TO . WILL CONTINUE TO MONITOR.
[2018-12-31 06:25] LABS: CALCIUM 7.1 mg/dL (8.5-10.1); CHLORIDE SERUM 105 mmol/L (98-107); CREATININE SERUM 0.8 mg/dL (0.6-1.0); GLUCOSE SERUM 139 mg/dL (74-106); POTASSIUM SERUM 3.1 mmol/L (3.5-5.1); SODIUM SERUM 143 mmol/L (136-145)
[2018-12-31 06:27] LABS: PLATELET COUNT 168 x10^3mcL (130-400)
--- NOTE | 2018-12-31 06:38 | NUR ---
PHYSICAL THERAPY DAILY NOTES CO-SIGN All documentation done by the Bleach Liquor Maker for 12/31/18 has been reviewed. I agree with the documentation. Reviewed/Co-Signed by: Cinthia Qureshi PT Documentation Done by:CLAUDETTE BECKER [facility] FOR 12/30/18
[2018-12-31 06:45] LABS: BASOPHIL % 0 % (0-2); RED CELL DISTRIBUTION WIDTH 16.3 % (11.5-14.5)
--- NOTE | 2018-12-31 07:25 | NUR ---
RECEIVED PT IN NO ACUTE DISTRESS. SLEEPING BUT EASILY AROUSABLE. ON BIPAP AT THIS TIME. IVF INFUSING, NO REDNESS OR SWELLING NOTED. FALL PRECAUTIONS. VOIDING FREELY. BED IN LOW POSITION, CALL LIGHT WITHIN REACH. WILL CONTINUE TO MONITOR.
[2018-12-31 08:44] VITALS: BP 154/82
[2018-12-31 11:44] VITALS: BP 137/86
--- NOTE | 2018-12-31 12:40 | NUR ---
PT SITTING UP IN BED EATING LUNCH. NO ACUTE DISTRESS. BREATHING EVEN AND UNLABORED ON RA. IVF INFUSING, NO REDNESS OR SWELLING. FALL PRECAUTIONS. CALL LIGHT WITHIN REACH. WILL CONTINUE TO MONITOR.
--- NOTE | 2018-12-31 12:42 | NUR ---
Initial Nutrition Assessment- Dx: Sepsis w/ Bilateral PNA, Afib PMHx: Atrial Fibrillation, Congestive Heart Failure, Hypertension, Diabetes, Sleep Apnea on home CPAP, Hyperlipidemia PSHx: Cataract Removal (2016 bilateral) Labs: (12/31/18) K 3.1L, BG 139H, BUN 23H, Ca 7.1L, (12/25/18) HgA1c 7.2H Meds: Colace, Eliquis, Humulin, Lasix, Lipitor, Prednisone, Solu-medrol, Zofran Diet: CCHO diet PO Intake: (12/28) 93% of 3 meals, (12/29) 95% of 2 meals, (12/30) 100% of 2 meals Ht:5'5 Wt: 137 lb, 62 kg BMI: 22.8 kg/m2 (Normal) IBW: 125 lb, 57 kg %IBW: 110 UBW: unknown Age: 78 yrs old/Female Food Allergies: unknown Skin: is intact. Fam: 18 Edema: none GI: Last BM 12/31/18 Per H&P, Patient reports gradual onset of symptoms and reports shortness of breath is exacerbated when laying flat. She admits to mild edema of bilateral lower extremities and abdominal pain exacerbated by cough. Pt seen sleeping in bed w/ student nurse at bedside. Per student nurse report, pt lives alone, no family at bedside, pt just fell asleep not too long ago. Pt had small BM this morning, pt does not have any abd discomfort this morning and tolerated diet well. Pt ate 100% of breakfast this morning. 2gm Na diet is warranted for heart failure. RD communicated w/ DIRECTOR INTERNAL COMMUNICATIONS Jd at nurse station for diet rec. Pt is likely meeting adequate nutrition. Problem with: no c/o N/V/D/C Problems with: Chewing:no Swallowing: no Current appetite: good Recent wt change: unknown %wt change: n/a Vitamin/Supplement use: none Special diet at home: none Physical activity: none, w/ generalized weakness, pt uses walker to ambulate. Education: was not provided during this visit. Estimated Nutritional Needs Based on actual body weight 62 kg Energy: 7429-8125 kcal/d (30-35 kcal/kg-increased for sepsis) Protein: 93-124 g/d (1.5-2 g/kg- increased for sepsis) Fluid: per doctor (Heart Failure) Nutrition Diagnosis 1. Increased nutrient needs r/t metabolic demands AEB increased calorie and protein needs for sepsis. 2. Altered nutrition related labs r/t endocrine dysfunction AEB elevated BG and HgA1c lab values. Intervention *Recommend adding 2gm Na diet to current diet order. Monitor/Evaluate Goal: PO intake at least 75% of estimated needs Monitor: PO intake, Labs, GI function F/U in 3-5 days as moderate risk 01/03-01/05
--- NOTE | 2018-12-31 12:42 | NUR ---
*Recommend adding 2gm Na diet to current [facility] diet order.
[2018-12-31] MEDS ORDERED: LEVAQUIN750 MG PO (12:46)
[2018-12-31] MEDS ORDERED: PREDNISONE20 MG PO (12:48)
[2018-12-31] MEDS ORDERED: PROAIR HFA8.5 GM IH (15:36)
--- NOTE | 2018-12-31 15:41 | NUR ---
PT AWAKE, ALERT, AND ORIENTED. VSS. BREATHING EVEN AND UNLABORED ON RA. RX GIVEN. DISCHARGE EDUCATION PROVIDED, PT VERBALIZED UNDERSTANDING. INSTRUCTED PT TO FOLLOW UP WITH PCP. EDUCATION REGARDING NEW AND CONTINUED MEDICATIONS PROVIDED. BELONGINGS WITH PT. PT WAITING FOR RIDE HOME. WILL CONTINUE TO MONITOR.
--- NOTE | 2018-12-31 18:27 | NUR ---
IV TO L HAND DC'D WITH CATHETER INTACT. PT DISCHARGED TO HOME IN NO ACUTE DISTRESS. AWAKE, ALERT, AND ORIENTED AT TIME OF DISCHARGE. BELONGINGS WITH PT. CATRACHITA TURNER ACCOMPANIED PT TO LOBBY.
--- NOTE | 2019-01-01 06:27 | NUR ---
PHYSICAL THERAPY DAILY NOTES CO-SIGN All documentation done by the Manager Marketing Communications for 01/01/19 has been reviewed. I agree with the documentation. Reviewed/Co-Signed by: Cinthia Qureshi PT Documentation Done by:JEN BOYD PTA FOR 12/31/18
== END 2018-12-31 18:28 | disposition home health service (06) | DRG 871 ==
LOC: ED 08:46 → DU 10:15 → MU 12-31 14:16
PROVIDERS: Family Medicine; Specialist; ADMIT Internal Medicine
DX: A41.9 Sepsis, unspecified organism (principal); J96.01 Acute respiratory failure with hypoxia; J18.9 Pneumonia, unspecified organism; I50.43 Acute on chronic combined systolic (congestive) and diastolic (congestive) heart failure; N17.0 Acute kidney failure with tubular necrosis; E87.1 Hypo-osmolality and hyponatremia; I42.9 Cardiomyopathy, unspecified; D68.69 Other thrombophilia; I11.0 Hypertensive heart disease with heart failure; E11.65 Type 2 diabetes mellitus with hyperglycemia; I48.2 Chronic atrial fibrillation; E86.0 Dehydration; G47.33 Obstructive sleep apnea (adult) (pediatric); E78.5 Hyperlipidemia, unspecified; J45.909 Unspecified asthma, uncomplicated; Z68.22 Body mass index [BMI] 22.0-22.9, adult; Z79.84 Long term (current) use of oral hypoglycemic drugs
CPT/HCPCS: 36600; 82962; 83880; 84439; 94150; 97110-GP; 97116-GP; 97530-GP; J1160; J1940; J1956; J2543; J2920; J2930; J3480; J7030; J7512; J7613; J7620; J7644; Q0092